=== PATIENT | female | born 1950 | race African-American/Black ===

== ENCOUNTER 2023-09-18 10:56 | Emergency (ER) | payer OTHER ==
[~2023-09-18] VITALS: Ht 160 cm; Wt 90.0 kg
[2023-09-18 10:58] VITALS: O2SAT 100
[2023-09-18 11:33] LABS: BASOPHILS % 0.3 % (0.0-2.0); EOSINOPHILS % 1.8 % (0.0-5.0); HEMOGLOBIN. 12.3 g/dL (12.0-16.0); LYMPHOCYTES % 42.6 % (20.0-50.0); MEAN CORPUSCULAR HEMOGLOBIN 28.5 pg (28.0-32.0); MEAN CORPUSCULAR HGB CONC 32.2 g/dL (31.0-37.0); MEAN CORPUSCULAR VOLUME 88.3 fL (81.0-99.0); MEAN PLATELET VOLUME 9.2 fl (7.4-10.4); MONOCYTES % 8.7 % (2.0-8.0); NEUTROPHILS % 46.6 % (40.0-76.0); PLATELET 220 x1000/uL (130-400); RED BLOOD CELL COUNT 4.31 mill/uL (4.2-5.4); RED CELL DISTRIBUTION WIDTH 15.7 % (11.6-14.6); WHITE BLOOD COUNT 5.4 x1000/uL (4.5-11.0)
[2023-09-18 11:40] LABS: CHLORIDE 104 mEq/L (98-107); POTASSIUM 3.2 mEq/L (3.5-5.1); SODIUM 140 mEq/L (136-145)
[2023-09-18 11:41] LABS: CARBON DIOXIDE 26 mEq/L (21-32)
[2023-09-18] MEDS ORDERED: MECLIZINE 25MG TABLET PO ONE (11:45)
[2023-09-18 11:46] LABS: CREATININE 0.6 mg/dL (0.6-1.0); GLUCOSE 151 mg/dL (70-105); UREA NITROGEN BLOOD 11 mg/dL (9-23)
[2023-09-18 11:50] LABS: TROPONIN I HIGH SENSITIVITY < 4 ng/L (3.0-34)
[2023-09-18] MEDS: SODIUM CHLORIDE 0.9% 1,000 ML IV ONE (12:25)
[2023-09-18] MEDS: METOCLOPRAMIDE HCL 10MG/2ML VIAL IV ONE (12:25)
[2023-09-18] MEDS: MECLIZINE 12.5MG TABLET PO NR (12:40)
[2023-09-18] MEDS ORDERED: TUSSL PO (13:25)
[2023-09-18] MEDS ORDERED: MECL-299 PO (13:25)
[2023-09-18] MEDS ORDERED: DIPH25CA83 PO (13:55)
[2023-09-18 14:03] VITALS: BP 138/3; PULSE 72; RESP 18; TEMP 98.2
== END 2023-09-18 14:08 | disposition home or self-care (01) ==
LOC: ER 10:56
DX: R42 Dizziness and giddiness (principal); H92.02 Otalgia, left ear; E78.00 Pure hypercholesterolemia, unspecified; E11.9 Type 2 diabetes mellitus without complications; I10 Essential (primary) hypertension; Z88.5 Allergy status to narcotic agent; Z88.8 Allergy status to other drugs, medicaments and biological substances
CPT/HCPCS: 99284; 96374; 71045; 96361; 80048; 83880; 85025; 84484; 36415; J8597; J2765; J7030

== ENCOUNTER 2024-12-17 21:25 | Emergency (ER) | payer OTHER ==
[~2024-12-17] VITALS: Ht 172.7 cm; Wt 97.0 kg
[~2024-12-17 21:25] MED LIST: DIPH25CA83 PO; MECL-299 PO; TUSSL PO
[2024-12-17 21:28] VITALS: O2SAT 96
[2024-12-17] MEDS: SODIUM CHLORIDE 0.9% 1,000 ML IV ONE (22:45)
[2024-12-17 23:41] LABS: BASOPHILS % 0.2 % (0.0-2.0); EOSINOPHILS % 0.0 % (0.0-5.0); HEMATOCRIT. 36.1 % (36.0-48.0); HEMOGLOBIN. 11.8 g/dL (12.0-16.0); LYMPHOCYTES % 18.2 % (20.0-50.0); MEAN PLATELET VOLUME 8.9 fl (7.4-10.4); MONOCYTES % 8.6 % (2.0-8.0); NEUTROPHILS % 73.0 % (40.0-76.0); PLATELET 205 x1000/uL (130-400); RED BLOOD CELL COUNT 4.08 mill/uL (4.2-5.4); RED CELL DISTRIBUTION WIDTH 15.1 % (11.6-14.6)
[2024-12-17] MEDS: MORPHINE SULFATE 4 MG/ML INJ (FOR IV/IM USE) IV ONE (23:43)
[2024-12-17] MEDS: ONDANSETRON HCL 4MG/2ML INJ IV ONE (23:43)
[2024-12-17 23:51] LABS: CREATININE 0.7 mg/dL (0.6-1.0)
[2024-12-17 23:52] LABS: UREA NITROGEN BLOOD 9 mg/dL (9-23)
[2024-12-18] MEDS: POTASSIUM CHLORIDE 20MEQ/PACKET PO ONE (01:55)
[2024-12-18 02:57] LABS: CLARITY URINE CLEAR (CLEAR); COLOR URINE YELLOW (YELLOW); GLUCOSE URINE NEGATIVE (NEGATIVE); KETONES URINE NEGATIVE (NEGATIVE); LEUKOCYTE ESTERASE URINE NEGATIVE (NEGATIVE); NITRITE URINE NEGATIVE (NEGATIVE); OCCULT BLOOD URINE NEGATIVE (NEGATIVE); PH URINE 6.0 (4.5-8.0); PROTEIN URINE NEGATIVE (NEGATIVE); SPECIFIC GRAVITY URINE 1.010 (1.005-1.030); UROBILINOGEN URINE 0.2 E.U./dL (0.2-1.0)
[2024-12-18 03:42] VITALS: BP 110/59; PULSE 96; RESP 20; O2SAT 97
== END 2024-12-18 03:51 | disposition short-term general hospital (02) ==
LOC: ER 21:25 → CMPBEDREQ 12-18 05:01
DX: G89.18 Other acute postprocedural pain (principal); I10 Essential (primary) hypertension; E11.9 Type 2 diabetes mellitus without complications; E78.00 Pure hypercholesterolemia, unspecified; Z88.5 Allergy status to narcotic agent; Z88.8 Allergy status to other drugs, medicaments and biological substances
CPT/HCPCS: 99285; 96374; 96361; 96375; 80048; 85025; 36415; 81003; J2405; J2270; J7030